=== PATIENT | male | born 1945 | race Caucasian/White ===

== ENCOUNTER → 2024-03-09 10:11 | Outpatient (CLI) | payer MEDICARE, SELFPAY ==
--- NOTE | 2024-03-09 | DI.NM.S_ITS ---
PROCEDURE: NM BONE SCAN WHOLE BODY RADIOPHARMACEUTICAL: 19.6 mCi Tc-99m MDP IV. INDICATIONS: Malignant neoplasm of prostate, secondary malignan TECHNIQUE: Delayed whole-body scintigrams were obtained approximately 3-4 hours after intravenous injection of radiotracer. Anterior and posterior views were acquired from vertex to feet. COMPARISON: None. FINDINGS: Radiotracer excretion is seen in the urinary system. Right sacral lesion is seen, involving most of the right gurvinder sacrum, likely involving the sacroiliac joint. Uptake is also seen in the manubrium extending to the left anterior ribs. Possible mild suspicious foci of rib uptake, for example the left posterior 9th rib. Other foci rib uptake consecutively seen in the right lateral ribs may be due to prior trauma, although an underlying lesion remains possible. 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 Right lateral consecutive rib uptake may be traumatic, although an underlying lesion remains possible. Dictated by: Oni Girard M.D. on 03/09/2024 at 16:37 Approved by: Oni Girard M.D. on 03/09/2024 at 16:39
== END ==
PROVIDERS: PCP Internal Medicine; Referring Provider Internal Medicine Medical Oncology; Visit Provider Internal Medicine Medical Oncology
DX: C61 Malignant neoplasm of prostate (principal); C79.51 Secondary malignant neoplasm of bone
CPT/HCPCS: 78306; A9503